=== PATIENT | male | born 1960 | race Caucasian/White ===

== ENCOUNTER → 2021-04-30 | Day surgery (SDC) | payer BC ==
[~2021-04-30] MED LIST: LABETALOL HCL 0 ML ONE; OR PHACO EYE KIT ONE; PREOP PHACO EYE KIT ONE
[2021-04-30 15:30] VITALS: BP 148/90
== END | disposition home or self-care (01) ==
LOC: OR 13:27
PROVIDERS: ATTEND Ophthalmology
DX: H25.11 Age-related nuclear cataract, right eye (principal); Z01.812 Encounter for preprocedural laboratory examination; Z20.822 Contact with and (suspected) exposure to COVID-19
CPT/HCPCS: 66984; U0002; V2632

== ENCOUNTER → 2021-05-28 | Day surgery (SDC) | payer BC ==
[~2021-05-28] MED LIST changes: -LABETALOL HCL 0 ML ONE
[2021-05-28 12:55] VITALS: BP 163/85
== END | disposition home or self-care (01) ==
LOC: OR 11:04
PROVIDERS: ATTEND Ophthalmology
DX: H25.12 Age-related nuclear cataract, left eye (principal); Z01.812 Encounter for preprocedural laboratory examination; Z20.822 Contact with and (suspected) exposure to COVID-19
CPT/HCPCS: 66984; U0002; V2632